=== PATIENT | female | born 1975 | race Caucasian/White ===

== ENCOUNTER 2017-03-28 16:51 | Emergency (ER) | payer MEDICAID ==
[2016-08-06 15:33] VITALS: BMI 26.2
[~2017-03-28 16:51] MED LIST: DEMEROL50 MG PO; PRENATAL COMPLE1 TAB PO
== END 2017-03-28 17:08 | disposition left against medical advice (07) ==
LOC: D.ER 16:51
DX: T78.40XA Allergy, unspecified, initial encounter (principal)